=== PATIENT | female | born 1950 | race Caucasian/White ===

== ENCOUNTER 2025-04-19 19:52 | Emergency (ER) | payer OTHER ==
[~2025-04-19] VITALS: Ht 167.6 cm; Wt 90.7 kg
[2025-04-19] MEDS ORDERED: 0.9 % SODIUM CHLORIDE 500 ML IV ONE (20:45)
[2025-04-19 21:24] VITALS: BP 117/80; O2SAT 97
[2025-04-19] MEDS ORDERED: LEVOTHYROXINE25 MCG (21:25)
[2025-04-19] MEDS ORDERED: TOPROL XL25 M1 (21:25)
[2025-04-19 22:00] LABS: BASO % 0.5 % (0.1-1.2); HEMATOCRIT 41.8 % (34.1-44.9); HEMOGLOBIN 13.7 g/dL (11.2-15.7); LYMPH # 1.34 (1.18-3.74); MONO % 6.8 % (4.7-12.5); NEUT # 8.05 (1.56-6.13); NEUT % 78.4 % (34.0-71.1); PLATELET COUNT 235 K/uL (163-369); RED BLOOD COUNT 4.57 M/uL (3.93-5.22); RED CELL DISTRIBUTION WIDTH 12.8 % (11.6-14.4)
[2025-04-19 22:22] LABS: INR 1.07; PARTIAL THROMBOPLASTIN TIME 23.1 SECONDS (22.0-34.0); PROTHROMBIN TIME 11.6 SECONDS (9.0-11.5)
[2025-04-19 22:28] LABS: ALBUMIN 3.7 gm/dL (3.4-5.0); BILIRUBIN TOTAL 1.31 mg/dL (0.3-1.2); CALCIUM 9.4 mg/dL (8.5-10.1); CREATININE SERUM 1.12 mg/dL (0.55-1.02); GFR 47.68; GLOBULINA 4.1 G/DL (2.4-3.5); POTASSIUM 3.79 mEq/L (3.5-5.1); TOTAL PROTEIN 7.8 gm/dL (6.4-8.2)
[2025-04-19 22:30] LABS: COVID-19 AG NEGATIVE (NEGATIVE)
[2025-04-19 22:40] LABS: INFLUENZA A AG NEGATIVE (NEGATIVE); INFLUENZA B AG NEGATIVE (NEGATIVE)
[2025-04-19 23:32] LABS: URINE RBC 24.1 uL (0.0-20.8); URINE WBC 1493.1 uL (0.0-23.2)
[2025-04-19 23:38] LABS: PH,URINE 5.5 (5.0-8.0); URINE APPEARANCE Turbid; URINE BILIRRUBIN Negative (NEGATIVE); URINE BLOOD Trace; URINE COLOR Dark Yellow; URINE GLUCOSE Negative (NEGATIVE); URINE KETONE 15 (NEGATIVE); URINE LEUKOCYTE Large; URINE NITRATE Negative; URINE PROTEIN 30 (NEGATIVE)
[2025-04-19] MEDS ORDERED: PEPCID AC20 MG PO (23:46)
[2025-04-19] MEDS ORDERED: BACTRIM DS TAB1 EACH PO (23:46)
[2025-04-20 00:01] LABS: URINE BACTERIA > 9821.5 uL (0.0-1933); URINE CAST 0.58 uL (0.0-1.40); URINE EPITHELIAL CELLS > 201.7 uL (0.0-38.8)
[2025-04-20 00:02] LABS: URINE CRYSTALS MODERATE /HPF; URINE MUCUS MODERATE
[2025-04-20 00:03] LABS: TYPE CELLS SQUAMOUS
== END 2025-04-19 23:52 | disposition home or self-care (01) ==
LOC: ER 19:52
PROVIDERS: General Practice
DX: R53.1 Weakness (principal); I10 Essential (primary) hypertension; E03.9 Hypothyroidism, unspecified; Z20.822 Contact with and (suspected) exposure to COVID-19; Z88.8 Allergy status to other drugs, medicaments and biological substances; Z91.041 Radiographic dye allergy status
CPT/HCPCS: 36415; 70450; 93005; 96365; 99283; J3490